=== PATIENT | male | born 2000 | race Asian ===

== ENCOUNTER 2021-01-30 12:11 | Emergency (ER) | payer OTHER, SELFPAY ==
[2021-01-30 12:20] VITALS: BP 174/105; PULSE 85; RESP 20; TEMP 37.2; O2SAT 100
--- NOTE | 2021-01-30 12:23 | ED.EYEPROB ---
HPI - Eye Problem General Chief complaint: Eye Problems Stated complaint: eye issues Source: patient and RN notes reviewed Mode of arrival: ambulatory Limitations: no limitations History of Present Illness HPI Narrative: Presley is a 20-year-old male patient who ambulated into the [facility]. Patient states last night he started having right eye pain with occasional drainage. Patient states his left eye is red and painful as well. Patient denies any injury. Patient states he exchanges contacts and no change in his condition. MD chief complaint: eye pain Related Data Allergies Allergy/AdvReac Type Severity Reaction Status Date / Time No Known Allergies Allergy Verified 01/30/21 12:32 Review of Systems Review of Systems: CONSTITUTIONAL: Denies body aches, fever, chills, or sweats. EYES: + visual changes,+ redness, +discharge. ENT: Denies rhinorrhea, congestion, sore throat, or otalgia. CARDIOVASCULAR: Denies chest pain, palpitations, or edema. RESPIRATORY: Denies cough or dyspnea. GASTROINTESTINAL: Denies abdominal pain, nausea, vomiting, or diarrhea. GENITOURINARY: Denies dysuria or hematuria. SKIN: Denies rash, itching, or wounds. MUSCULOSKELETAL: Denies back pain, joint pain, or myalgia. NEUROLOGIC: Denies headache, numbness, tingling, or weakness. PSYCH: Denies depression or anxiety. All systems reviewed & are unremarkable except as noted in HPI and below PMFSH Comments At time of signature, I have reviewed and agree with nursing past medical, surgical, social and family history unless otherwise noted. Please see nursing chart for further information. There is no relevant family history pertinent to the presenting complaint Exam Narrative: GENERAL: Well-appearing, well-nourished, and in no acute distress. HEAD: Normocephalic, atraumatic. EYES: EOMI. clear drainage noted from left eye, right eye erythemic with minimal yellow drainage, small ulcer noted at 3 o'clock right eye, ENT: Mucous membranes pink and moist. Nares clear. No rhinorrhea. NECK: Normal AROM. Supple. No lymphadenopathy. CHEST: No respiratory distress. MUSCULOSKELETAL: No bony tenderness. EXTREMITIES: Normal range of motion. No edema. SKIN: Warm, dry, no rash. Capillary refill normal. Normal skin turgor. NEURO: No focal deficits. Alert and oriented x3. Gait steady. PSYCH: Normal affect. No signs of depression or anxiety. Course Vital Signs Vital signs: Vital Signs Temperature 37.2 C 01/30/21 12:20 Pulse Rate 85 01/30/21 12:20 Respiratory Rate 20 01/30/21 12:20 Blood Pressure 174/105 H 01/30/21 12:20 Pulse Oximetry 100 01/30/21 12:20 Temperature 37.2 C 01/30/21 12:20 Pulse Rate 85 01/30/21 12:20 Respiratory Rate 20 01/30/21 12:20 Blood Pressure 174/105 H 01/30/21 12:20 Pulse Oximetry 100 01/30/21 12:20 Procedures Other Procedure Procedure 1: Other Procedure: Right eye was anesthetized with 1 drop of tetracaine and anesthesia was achieved. The eye was flushed with eye wash. Lid was inverted and examined. Moistened Qtip was used to sweep underneath the upper eyelid with no foreign bodies resulting. Cornea was dyed with fluorescein and one ulceration noted at 3 oclock. Pt tolerated procedure well. MDM - Eye Problem MDM Narrative Medical decision making narrative: Small ulcer on right eye at 3:00. Patient was given prescription for Cipro eyedrops and to follow-up with his eye doctor instructed to not wear glasses for the next 5 days.. Differential Diagnosis Differential diagnosis: Likely corneal abrasion, conjunctivitis, periorbital cellulitis and subconjunctival hemorrhage Critical Care Time Critical Care Time Critical Care Time: No Discharge Plan Discharge Clinical Impression: Corneal abrasion Qualifiers: Encounter type: initial encounter Laterality: left Qualified Code(s): S05.02XA - Injury of conjunctiva and corneal abrasion without foreign body, left eye, initial enco
== END 2021-01-30 12:55 | disposition home or self-care (01) ==
PROVIDERS: Emergency Provider Nurse Practitioner Family; PCP Internal Medicine
DX: S05.01XA Injury of conjunctiva and corneal abrasion without foreign body, right eye, initial encounter (principal); X58.XXXA Exposure to other specified factors, initial encounter
CPT/HCPCS: 99203; A9270; G0463